=== PATIENT | male | born 1985 | race Caucasian/White ===

== ENCOUNTER 2018-10-18 18:57 | Emergency (ER) | payer OTHER ==
[~2018-10-18] VITALS: Ht 195.6 cm; Wt 86.2 kg
[2018-10-18] MEDS ORDERED: CAMBIA50 MG (19:41)
== END 2018-10-18 23:40 | disposition home or self-care (01) ==
LOC: ER 18:57
DX: S60.212A Contusion of left wrist, initial encounter (principal); M25.532 Pain in left wrist; W18.39XA Other fall on same level, initial encounter; Y93.89 Activity, other specified; Y92.098 Other place in other non-institutional residence as the place of occurrence of the external cause; Y99.8 Other external cause status